=== PATIENT | female | born 1945 | race Caucasian/White ===

== ENCOUNTER 2016-07-21 06:14 | Inpatient (IN) | payer MEDICARE ==
[~2016-07-21] VITALS: Ht 167.6 cm; Wt 88.0 kg
[~2016-07-21 06:14] MED LIST: ALPR-475 PO; BISA10SU2 PR; FURO-92 PO; HYDR-3240 PO; LACT10SO PO; LACT10SO28 PO; METR500T4 PO; NITR100C PO; NYST15PO9 TP; OXYC5TAB3 PO; PANT40TA5 PO; POLY17PO5 PO; PROP20TA PO; SPIR100T PO; [UNRECOGNIZED DRUG - CODE] PO
[2016-07-21] MEDS ORDERED: SODIUM CHLORIDE FLUSH 10ML SYR IVF ONE (06:30)
[2016-07-21 06:55] LABS: HEMOGLOBIN 9.9 g/dL (11.7-16.4)
[2016-07-21] MEDS ORDERED: PLEASE ENTER HEIGHT AND WEIGHT MC SCH (07:00)
[2016-07-21 07:08] LABS: ASPARTATE AMINO TRANSFERASE 51 U/L (15-37); BLOOD UREA NITROGEN 17 mg/dL (7-18)
[2016-07-21] MEDS ORDERED: MORPHINE SULFATE 4 MG/ML, 1ML ONE ×2 (07:34→08:56)
[2016-07-21] MEDS: MORPHINE SULFATE 4 MG/ML, 1ML IVPush PRN ×2 (07:36→08:57)
[2016-07-21] MEDS ORDERED: LACTULOSE 20 GM/30 ML UDC PO ONE (07:38)
[2016-07-21 07:43] LABS: DIFF TOTAL CELLS COUNTED 100 CELL DIFF
[2016-07-21 07:44] LABS: ANISOCYTOSIS 1+; VERIFY COUNTS? YES
[2016-07-21] MEDS ORDERED: ACETAMINOPHEN 325 MG TABLET PO PRN (09:30)
[2016-07-21] MEDS: RIFAXIMIN 550 MG TABLET PO SCH ×2 (09:30→21:38)
[2016-07-21] MEDS ORDERED: SODIUM BICARBONATE 4.2%, 5ML ONE (09:38)
[2016-07-21] MEDS ORDERED: LIDOCAINE 1%, 20ML ONE (09:38)
[2016-07-21 10:57] VITALS: BP 148/74
[2016-07-21] MEDS ORDERED: OXYcodone IR 5MG TABLET PO PRN (11:30)
[2016-07-21] MEDS: OXYcodone 5 MG/5 ML ORAL.SOL UDC PO PRN (11:55)
[2016-07-21 12:32] VITALS: BP 134/72
[2016-07-21 15:04] VITALS: BP 144/73
[2016-07-21] MEDS: LACTULOSE 10 GM/15 ML UDC PO SCH ×2 (16:26→21:38)
[2016-07-21 20:10] VITALS: BP 145/75
[2016-07-21] MEDS: PANTOPROZOLE 40MG TABLET PO SCH (21:38)
[2016-07-22 02:29] VITALS: BP 148/71
[2016-07-22 04:29] LABS: HEMOGLOBIN 9.3 g/dL (11.7-16.4)
[2016-07-22 04:33] LABS: BLOOD UREA NITROGEN 19 mg/dL (7-18)
[2016-07-22 07:36] VITALS: BP 148/64
[2016-07-22] MEDS: OXYcodone 5 MG/5 ML ORAL.SOL UDC PO PRN ×2 (08:36→13:56)
[2016-07-22] MEDS: SPIRONOLACTONE 100 MG TABLET PO SCH (08:37)
[2016-07-22] MEDS: FUROSEMIDE 40 MG TABLET PO SCH (08:37)
[2016-07-22] MEDS: PANTOPROZOLE 40MG TABLET PO SCH ×2 (08:37→20:39)
[2016-07-22] MEDS: LACTULOSE 10 GM/15 ML UDC PO SCH ×3 (08:37→20:39)
[2016-07-22] MEDS: PROPRANOLOL 20 MG TABLET PO SCH (08:38)
[2016-07-22] MEDS: RIFAXIMIN 550 MG TABLET PO SCH ×2 (10:45→20:39)
[2016-07-22] MEDS ORDERED: MAGNESIUM SULFATE PMX 4GM/100M 100 ML IV ONE (11:30)
[2016-07-22] MEDS: ONDANSETRON ODT 4 MG PO PRN (13:56)
[2016-07-22 14:00] VITALS: BP 123/66
[2016-07-22 20:43] VITALS: BP 132/72
[2016-07-23 02:11] VITALS: BP 127/71
[2016-07-23 05:48] LABS: ASPARTATE AMINO TRANSFERASE 41 U/L (15-37); BLOOD UREA NITROGEN 23 mg/dL (7-18)
[2016-07-23 06:49] VITALS: BP 126/66
[2016-07-23] MEDS: PANTOPROZOLE 40MG TABLET PO SCH ×2 (09:12→20:51)
[2016-07-23] MEDS: FUROSEMIDE 40 MG TABLET PO SCH (09:13)
[2016-07-23] MEDS: SPIRONOLACTONE 100 MG TABLET PO SCH (09:13)
[2016-07-23] MEDS: LACTULOSE 10 GM/15 ML UDC PO SCH ×3 (09:14→20:51)
[2016-07-23] MEDS: PROPRANOLOL 20 MG TABLET PO SCH (09:14)
[2016-07-23] MEDS: RIFAXIMIN 550 MG TABLET PO SCH ×2 (09:14→20:52)
[2016-07-23] MEDS: ONDANSETRON ODT 4 MG PO PRN ×3 (11:10→20:52)
[2016-07-23 12:51] VITALS: BP 129/69
[2016-07-23 19:06] VITALS: BP 106/63
[2016-07-24 00:07] VITALS: BP 112/69
[2016-07-24 06:38] VITALS: BP 115/60
[2016-07-24] MEDS: LACTULOSE 10 GM/15 ML UDC PO SCH (08:23)
[2016-07-24] MEDS: RIFAXIMIN 550 MG TABLET PO SCH (08:24)
[2016-07-24] MEDS: PROPRANOLOL 20 MG TABLET PO SCH (08:24)
[2016-07-24] MEDS: FUROSEMIDE 40 MG TABLET PO SCH (08:24)
[2016-07-24] MEDS: SPIRONOLACTONE 100 MG TABLET PO SCH (08:24)
[2016-07-24] MEDS: PANTOPROZOLE 40MG TABLET PO SCH (08:24)
== END 2016-07-24 14:26 | disposition hospice, home (50) | DRG 682 ==
LOC: ED 06:29 → SUATTDRO 08:57 → EDIP 09:08 → 3NW 10:53
PROVIDERS: ADMIT Internal Medicine; ATTEND Internal Medicine
PROC: 0W9G3ZZ Drainage of Peritoneal Cavity, Percutaneous Approach (ICD-10-PCS; principal; 2016-07-21)
PROC: 0T9B70Z Drainage of Bladder with Drainage Device, Via Natural or Artificial Opening (ICD-10-PCS; 2016-07-23)
DX: N17.9 Acute kidney failure, unspecified (principal); K72.00 Acute and subacute hepatic failure without coma; D68.9 Coagulation defect, unspecified; E44.0 Moderate protein-calorie malnutrition; R18.8 Other ascites; K74.60 Unspecified cirrhosis of liver; K75.81 Nonalcoholic steatohepatitis (NASH); I10 Essential (primary) hypertension; K76.9 Liver disease, unspecified; Z90.710 Acquired absence of both cervix and uterus; Z98.51 Tubal ligation status; Z88.5 Allergy status to narcotic agent; Z88.8 Allergy status to other drugs, medicaments and biological substances; Z90.49 Acquired absence of other specified parts of digestive tract; Z68.30 Body mass index [BMI] 30.0-30.9, adult; K56.41 Fecal impaction; Z51.5 Encounter for palliative care; Z66 Do not resuscitate
CPT/HCPCS: 36415; 49083; 70450; 71010; 74176; 80048; 80053; 81001; 82140; 83690; 83735; 85025; 85610; 87040; 87324; 93005; 96374; 96376; J3490; Q0162; J3475